=== PATIENT | female | born 1990 | race Caucasian/White ===

== ENCOUNTER 2020-10-09 16:59 | Emergency (ER) | payer SELFPAY ==
[2020-10-09] MEDS ORDERED: HYDROCOD/APAP 5/325 (ER DISP) #3 TAB PO ONE (17:15)
[2020-10-09] MEDS ORDERED: CLINDAMYCIN HCL CAP (ER DISP) 150 MG CAP PO ONE (17:15)
--- NOTE | 2020-10-09 17:17 | ED.PDOC ---
History of Present Illness - General Time Seen by Provider: 10/09/20 17:00 Source: patient, RN notes reviewed, Vital Signs reviewed Exam Limitations: no limitations - History of Present Illness Initial Comments: 30 yo F with hx of seizures comes in with right tooth pain/abscess. Visiting family for umer. pain has been going on 3 days, taking motrin and tylenol. Pain got worse so came in for evaluation. no fever. While checking in noted abscess popped. Allergies/Adverse Reactions: Allergies Phenytoin Allergy (Verified 01/17/15 06:47) Home Medications: Ambulatory Orders Clindamycin HCl 300 mg PO Q8H #21 cap 10/09/20 Ibuprofen 800 mg PO TID PRN #30 tab 10/09/20 Review of Systems - Review of Systems Constitutional: Denies: chills, fever EENTM: States: mouth pain. Denies: blurred vision Respiratory: Denies: short of breath Cardiology: Denies: chest pain Gastrointestinal/Abdominal: Denies: abdominal pain Genitourinary: Denies: discharge Musculoskeletal: Denies: back pain, muscle pain Skin: Denies: rash Neurological: Denies: headache, numbness, paresthesia Endocrine: Denies: unexplained weight gain, unexplained weight loss Hematologic/Lymphatic: Denies: easy bleeding, easy bruising Past Medical History (General) - Patient Medical History Hx Seizures: Yes Hx Stroke: No Hx Dementia: No Hx Cardiac Disorders: No Hx Congestive Heart Failure: No Hx Hypertension: No Hx Thyroid Disease: No Hx Diabetes: No Hx Gastroesophageal Reflux: No Hx Renal Disease: No - Vaccination History Hx Tetanus, Diphtheria Vaccination: Yes - Social History Hx Alcohol Use: Yes - Female History Patient : No Family Medical History - Family History Mother Family History: Unknown Living Status: Still Living Physical Exam - Physical Exam General Appearance: Alert, Comfortable, No apparent distress, Well Developed, Well Groomed, Well Hydrated, Well Nourished Eye Exam: bilateral normal Throat Exam: pharynx normal, dental tenderness - tooth #3 with abscess, drainage purluent material, erythema, tenderness, other Neck: non-tender, supple, normal inspection, trachea midline Cardiovascular/Respiratory: regular rate, rhythm, no M/R/G, normal peripheral pulses, no respiratory distress Neurologic: hand developer II-XII nml as tested, no motor/sensory deficits, alert, normal mood/affect, oriented x 3 Skin Exam: normal color, warm/dry Progress - Progress Progress: 10/09/20 17:25 wound already draining no I&D needed at this time. Departure - Departure Clinical Impression: Dental abscess Time of Disposition: 17:15 Disposition: Discharge to Home or Self Care Instructions: Tooth Abscess (DC), Dental Pain (DC) Diet: resume usual diet Activity: increase activity as tolerated Prescriptions: Clindamycin HCl 300 mg PO Q8H #21 cap Ibuprofen 800 mg PO TID PRN #30 tab PRN Reason: Pain Home Medications: Ambulatory Orders Clindamycin HCl 300 mg PO Q8H #21 cap 10/09/20 Ibuprofen 800 mg PO TID PRN #30 tab 10/09/20 Additional Instructions: follow up with your dentist in 2-5 days.
[2020-10-09 17:47] VITALS: BP 128/88; TEMP 98.9; O2SAT 97
== END 2020-10-09 17:58 | disposition home or self-care (01) ==
LOC: ER 16:59
DX: K04.7 Periapical abscess without sinus (principal); R56.9 Unspecified convulsions; Z79.899 Other long term (current) drug therapy; Z88.8 Allergy status to other drugs, medicaments and biological substances